=== PATIENT | female | born 1975 ===

== ENCOUNTER 2019-03-22 08:45 | Day surgery (SDC) | payer BC, OTHER ==
[2019-03-20 15:57] VITALS: BMI 30.7
[~2019-03-22 08:45] MED LIST: LACTATED RINGERS 1,000 ML IV SCH
[2019-03-22] MEDS ORDERED: LIDOCAINE 1% 20 ML VIAL (10MG/ML) FOR IV START INTRADERMA ONE (09:17)
[2019-03-22 09:20] VITALS: RESP 16; TEMP 97.2
[2019-03-22] MEDS ORDERED: PROPOFOL 10 MG/ML 20 ML VIAL IV ONE (10:01)
--- NOTE | 2019-03-22 10:21 | P.PCN ---
Date of Procedure: 03/22/19 Procedure(s) Performed: BRIEF HISTORY: Patient is a 44-year-old pleasant female, scheduled for an elective colonoscopy as a part of evaluation of altered bowel movements for the last 3 months duration. She is been having alternating diarrhea and constipation with occasional rectal bleeding. PROCEDURE PERFORMED: Colonoscopy with random biopsies. PREOPERATIVE DIAGNOSIS: Altered bowel movements and intermittent rectal bleeding. IV sedation per Anesthesia. PROCEDURE: After informed consent was obtained, the patient, was brought into the endoscopy unit. IV sedation was administered by Anesthesia under continuous monitoring. Digital rectal examination was normal. Initially the Olympus CF-160 flexible video colonoscope was then inserted in the rectum, gradually advanced into the cecum without any difficulty. Careful examination was performed as the scope was gradually being withdrawn. Ileocecal valve and the appendiceal orifice were visualized and appeared normal. Prep was excellent. Mucosa of the cecum, ascending colon, transverse colon, descending colon, sigmoid colon, and rectum appeared normal. Random biopsies were done from ascending and descending colon to rule out microscope/collagenous colitis. Retroflexion was performed in the rectum and no lesions were seen. The patient tolerated the procedure well. IMPRESSION: Normal-appearing colon from rectum to cecum with no evidence of colorectal neoplasia. RECOMMENDATIONS: Findings of this examination were discussed with the patient as well as a family.. She was advised to follow with the biopsy results. She can have a repeat screening colonoscopy in 10 years.
[2019-03-22 10:46] VITALS: BP 105/66; PULSE 54
== END 2019-03-22 10:56 | disposition home or self-care (01) ==
LOC: ORWHC2ENDO 08:45
PROVIDERS: ATTEND Internal Medicine Gastroenterology
DX: K52.9 Noninfective gastroenteritis and colitis, unspecified (principal); K62.5 Hemorrhage of anus and rectum; F17.210 Nicotine dependence, cigarettes, uncomplicated; K21.9 Gastro-esophageal reflux disease without esophagitis; Z90.49 Acquired absence of other specified parts of digestive tract; Z79.1 Long term (current) use of non-steroidal anti-inflammatories (NSAID); Z79.899 Other long term (current) drug therapy
CPT/HCPCS: 81025; 88305; 45380; J2704

== ENCOUNTER 2020-12-09 09:31 | Day surgery (SDC) | payer BC, OTHER ==
[2020-12-06 11:51] VITALS: BMI 33.9
[~2020-12-09 09:31] MED LIST changes: -LACTATED RINGERS 1,000 ML IV SCH; +SODIUM CHLORIDE 0.9% 1,000 ML IV SCH
[2020-12-09] MEDS ORDERED: SODIUM CHLORIDE 0.9% 500 ML 500 ML IV ONE (09:44)
[2020-12-09 09:54] VITALS: BP 108/66; RESP 16; TEMP 98.4
[2020-12-09 11:16] VITALS: PULSE 73
--- NOTE | 2020-12-09 19:23 | P.EPPROC ---
- EP Procedure Note Electrophysiology Procedure Note: Diagnosis Recurrent syncope and presyncope Twelve-lead EKG shows sinus rhythm normal ME narrow QRS normal QT interval Tilt table test per protocol Baseline blood pressure 115/60 mmHg, Baseline heart rate 64 beats a minute Patient was tilted upright at an angle of 70 per protocol no symptoms noted Heart rate and blood pressure response for normal There was no evidence for neurocardiogenic syncope or dysautonomia Impression Normal twelve-lead EKG Normal heart rate and blood pressure response to upright tilting
== END 2020-12-09 11:21 | disposition home or self-care (01) ==
LOC: CATHEP 09:31
PROVIDERS: ATTEND Internal Medicine Clinical Cardiac Electrophysiology
DX: R55 Syncope and collapse (principal)
CPT/HCPCS: 81025; 93660

== ENCOUNTER 2021-11-06 09:23 | Day surgery (SDC) | payer BC, OTHER ==
[2021-11-06 09:46] VITALS: BP 129/83; PULSE 81; RESP 18; TEMP 97.3
[2021-11-06] MEDS ORDERED: MIDAZOLAM 2 MG/2 ML VIAL IV ONE (11:51)
[2021-11-06] MEDS ORDERED: LIDOCAINE 1% INJ 10MG/ML (30 ML VIAL-PF) SQ ONE (11:51)
--- NOTE | 2021-11-06 12:11 | P.EPPROC ---
- EP Procedure Note Electrophysiology Procedure Note: Loop monitor implant Primary physicians: Cotton Presser: Dr. Chaidez Indication: A. fib management, history of vasovagal syncope Patient was brought to the EP lab in a fasting state. Written informed consent was obtained prior to the procedure. The left pectoral area was prepped and draped per protocol. Intravenous antibiotic was administered preoperatively. A subcutaneous Loop monitor was implanted successfully and the wound was closed per protocol. The device was programmed to detect significant sulema- arrhythmic and tachy-arrhythmic events, per protocol. Device and programming details: A. fib protocol, positive in 4.5 seconds Patient underwent EP procedure under conscious sedation/moderate sedation, monitoring of the level of consciousness and physiologic parameters including but not limited to vital signs and oxygenation. Patient tolerated the procedure well without any acute complications. Start time: 1150 Stop time: 12 noon
== END 2021-11-06 12:45 | disposition home or self-care (01) ==
LOC: CATHEP 09:23
PROVIDERS: ATTEND Internal Medicine Clinical Cardiac Electrophysiology
DX: R55 Syncope and collapse (principal); I48.0 Paroxysmal atrial fibrillation; R00.0 Tachycardia, unspecified; Z72.0 Tobacco use; Z79.899 Other long term (current) drug therapy; Z20.822 Contact with and (suspected) exposure to COVID-19
CPT/HCPCS: 33285; 87635; C1764; J2250; J0690; J2001